=== PATIENT | female | born 1950 | race Caucasian/White ===

== ENCOUNTER → 2016-11-10 | Outpatient (REF) | payer BC ==
[2016-11-14 14:16] LABS: TOTAL ALK PHOS 175 IU/L (39-117)
== END ==
LOC: M LAB REF 16:36
PROVIDERS: ATTEND Internal Medicine
DX: R74.8 Abnormal levels of other serum enzymes (principal)

== ENCOUNTER → 2018-02-15 | Outpatient (REF) | payer BC, OTHER ==
[2018-02-15 19:11] LABS: FOLATE 5.4 NG/ML; VITAMIN B12 LEVEL 341 PG/ML
[2018-02-16 10:24] LABS: HEPATITIS C VIRUS ABY INDEX 0.1 INDEX (<0.8)
[2018-02-16 10:24] LABS: HIV 1&2 SCREEN CENTAUR NEGATIVE (NEGATIVE)
== END ==
LOC: M LAB REF 17:29
DX: Z01.89 Encounter for other specified special examinations (principal); Z98.84 Bariatric surgery status
CPT/HCPCS: 82746

== ENCOUNTER → 2018-10-26 | Outpatient (CLI) | payer OTHER ==
--- NOTE | 2018-10-26 14:15 | REP ---
Chest two views HISTORY: Cough Comparison: 06/10/2008 The lungs are clear. The heart is normal in size. The pulmonary vasculature is normal in appearance. The bony structure is intact. IMPRESSION: No acute disease. Electronically Signed by Castillo Hinds MD 10/26/2018 02:07 P
== END ==
LOC: M WUC 13:57
PROVIDERS: ATTEND Internal Medicine
DX: R05 Cough (principal); R53.83 Other fatigue

== ENCOUNTER → 2018-10-31 | Outpatient (REF) | payer OTHER ==
[2018-10-31 13:07] LABS: PERCENT SATURATION 7.1 % (13.2-45.0)
[2018-11-03 10:37] LABS: Alkaline Phosphatase Iso-Bone 57 % (14-68); Alkaline Phosphatase Iso-Intes 2 % (0-18); Alkaline Phosphatase Iso-Liver 41 % (18-85); TOTAL ALK PHOS 169 IU/L (39-117)
== END ==
LOC: M LAB REF 12:24
PROVIDERS: ATTEND Internal Medicine
DX: Z98.84 Bariatric surgery status (principal); D50.9 Iron deficiency anemia, unspecified

== ENCOUNTER → 2019-04-11 | Outpatient (REF) | payer OTHER ==
[2019-04-11 12:59] LABS: FOLATE 8.5 NG/ML
== END ==
LOC: M LAB REF 12:23
PROVIDERS: ATTEND Internal Medicine
DX: D64.9 Anemia, unspecified (principal); Z98.84 Bariatric surgery status

== ENCOUNTER 2019-08-06 10:53 | Emergency (ER) | payer MEDICARE ==
[~2019-08-06] VITALS: Ht 162.6 cm; Wt 93.1 kg
[2019-08-06] MEDS ORDERED: OMEP-218 (11:02)
[2019-08-06] MEDS ORDERED: BUPR300T92 (11:02)
[2019-08-06] MEDS ORDERED: GABA-845 (11:02)
[2019-08-06] MEDS ORDERED: NS 1,000 ML IV ONE (12:15)
[2019-08-06] MEDS ORDERED: ONDANSETRON 4MG/2ML VIAL (J2405) IV ONE (12:15)
[2019-08-06] MEDS ORDERED: KETOROLAC 30 MG/ML VIAL (J1885) IV ONE ×2 (12:15→14:45)
--- NOTE | 2019-08-06 14:09 | REP ---
CT of the abdomen and pelvis without IV and oral contrast for right flank pain: Comparison is 11/14/2006. The visualized lung f[place] are unremarkable. There are numerous surgical clips and staple lines in the upper abdomen as previously. The patient reportedly has had bariatric surgery. There is a focal dilated loop of small bowel in the mid upper abdomen, unchanged from the prior study with an anastomotic surgical suture ring at its periphery. The hepatic parenchyma is unremarkable. There is a cholecystectomy. The pancreas and spleen are unremarkable. The adrenals are unremarkable. There are no renal or ureteral calculi. There is no hydronephrosis. No perinephric stranding. The abdominal aorta is unremarkable. There is no periaortic adenopathy or mass. There is no bowel distension or obstruction. There is no ascites. No pneumoperitoneum. Pelvis: The patient reportedly has an appendectomy. The uterus, adnexa and bladder are unremarkable. There is no pelvic adenopathy or ascites. The pelvic bowel loops are unremarkable. Impression: There are no renal or ureteral calculi. There is no hydronephrosis. There is a cholecystectomy and appendectomy. The patient has had bariatric surgery. There are numerous surgical staple lines and clips in the upper abdomen. There is a chronically dilated loop of small bowel with a circumferential surgical suture ring. No evidence of bowel obstruction. No ascites, adenopathy or mass. Otherwise, negative CT of the abdomen and pelvis. Electronically Signed by Otilio Davis MD 08/06/2019 02:01 P
[2019-08-06 14:20] LABS: BASO # 0.1 10^3/uL (0.0-0.2); BASO % 1.2 % (0.0-1.0); EOS # 0.2 10^3/uL (0.0-0.5); EOS % 2.3 % (0.0-3.0); HEMATOCRIT 41.7 % (36.0-47.0); HEMOGLOBIN 12.8 g/dl (12.0-15.5); LYMPH # 1.9 10^3/uL (1.5-5.0); LYMPH % 29.8 % (24.0-44.0); MEAN CORPUSCULAR HEMOGLOBIN 30.7 pg (27.0-33.0); MEAN CORPUSCULAR HGB CONC 30.7 g/dl (32.0-36.5); MONO # 0.5 10^3/uL (0.0-0.8); MONO % 7.1 % (0.0-5.0); NEUTROPHILS # 3.8 10^3/uL (1.5-8.5); NEUTROPHILS % 59.3 % (36.0-66.0); PLATELET COUNT, AUTOMATED 229 10^3/uL (150-450); RED BLOOD COUNT 4.17 10^6/uL (4.00-5.40); WHITE BLOOD COUNT 6.4 10^3/uL (4.0-10.0)
[2019-08-06 14:45] LABS: BILIRUBIN,DIRECT 0.1 MG/DL (0.0-0.2); BILIRUBIN,TOTAL 0.3 MG/DL (0.2-1.0); TOTAL PROTEIN 5.5 GM/DL (6.4-8.2)
[2019-08-06] MEDS ORDERED: METH1TAB40 PO (15:39)
[2019-08-06 15:46] VITALS: BP 133/60
== END 2019-08-06 15:47 | disposition home or self-care (01) ==
LOC: M ED 10:53
DX: M54.5 Low back pain (principal); G56.91 Unspecified mononeuropathy of right upper limb; Z88.5 Allergy status to narcotic agent; Z91.048 Other nonmedicinal substance allergy status; Z79.899 Other long term (current) drug therapy; Z98.84 Bariatric surgery status
CPT/HCPCS: 36415; 74176; 80047; 80076; 81001; 85025; 87086; 96374; 96375; 99284; J1885; J2405

== ENCOUNTER → 2019-09-16 | Outpatient (CLI) | payer MEDICARE ==
[~2019-09-16] MED LIST: BUPR300T92; GABA-845; METH1TAB40 PO; OMEP-218
[2019-09-16 16:13] LABS: HEMATOCRIT 45.1 % (36.0-47.0); HEMOGLOBIN 14.4 g/dl (12.0-15.5); MEAN CORPUSCULAR HEMOGLOBIN 31.6 pg (27.0-33.0); MEAN CORPUSCULAR HGB CONC 31.9 g/dl (32.0-36.5); MEAN CORPUSCULAR VOLUME 99.1 fl (80.0-96.0); PLATELET COUNT, AUTOMATED 294 10^3/uL (150-450); RED BLOOD COUNT 4.55 10^6/uL (4.00-5.40); WHITE BLOOD COUNT 7.5 10^3/uL (4.0-10.0)
[2019-09-16 16:20] LABS: ALBUMIN 3.1 GM/DL (3.2-5.2); ALT/SGPT 24 U/L (12-78); BILIRUBIN,DIRECT 0.1 MG/DL (0.0-0.2); BILIRUBIN,TOTAL 0.3 MG/DL (0.2-1.0); BLOOD UREA NITROGEN 16 MG/DL (7-18); CALCIUM LEVEL 8.5 MG/DL (8.8-10.2); CARBON DIOXIDE LEVEL 27 MEQ/L (21-32); CHLORIDE LEVEL 110 MEQ/L (98-107); CREATININE FOR GFR 0.84 MG/DL (0.55-1.30); GLOMERULAR FILTRATION RATE > 60.0 (>45); GLUCOSE, FASTING 101 MG/DL (70-100); PHOSPHORUS LEVEL 4.7 MG/DL (2.5-4.9); POTASSIUM SERUM 4.6 MEQ/L (3.5-5.1); SODIUM LEVEL 144 MEQ/L (136-145); TOTAL PROTEIN 5.9 GM/DL (6.4-8.2)
== END ==
LOC: M WUC 13:46
PROVIDERS: ATTEND Podiatrist Foot & Ankle Surgery
DX: Z79.899 Other long term (current) drug therapy (principal)

== ENCOUNTER → 2020-04-09 | Outpatient (REF) | payer MEDICARE | LOC: M LAB REF 16:11 | PROVIDERS: ATTEND Internal Medicine | DX: D64.9 Anemia, unspecified (principal); Z98.84 Bariatric surgery status ==

== ENCOUNTER → 2021-11-02 | Outpatient (CLI) | payer MEDICARE ==
[~2021-11-02] MED LIST changes: +GABA-283; -GABA-845; +METH-1164 PO; -METH1TAB40 PO; +OMEP-173; -OMEP-218
== END ==
LOC: M PLAIMG 10:06
PROVIDERS: ATTEND Nurse Practitioner Family
DX: M54.2 Cervicalgia (principal)

== ENCOUNTER → 2021-12-27 | Outpatient (REF) | payer MEDICARE ==
[2021-12-27 17:53] LABS: FOLATE 7.9 NG/ML
== END ==
LOC: M LAB REF 16:17
PROVIDERS: ATTEND Internal Medicine
DX: D64.9 Anemia, unspecified (principal); Z98.84 Bariatric surgery status

== ENCOUNTER 2022-01-01 08:48 | Emergency (ER) | payer MEDICARE ==
[~2022-01-01] VITALS: Ht 162.6 cm; Wt 89.1 kg
[~2022-01-01 08:48] MED LIST changes: -BUPR300T92; +BUPR300T92 PO; -GABA-283; +GABA-283 PO
[2022-01-01] MEDS ORDERED: diphenhydrAMINE 50MG/ML VIAL (J1200) IV STA (09:22)
[2022-01-01] MEDS ORDERED: CLINDAMYCIN 900 MG in IV 1 EA IV ONE (09:25)
[2022-01-01] MEDS ORDERED: NS 1,000 ML IV SCH (09:25)
[2022-01-01] MEDS ORDERED: ONDANSETRON 4MG 2ML VIAL IV ONE (09:25)
[2022-01-01] MEDS: MORPHINE 2 MG/ML 1ML VIAL IV PRN ×2 (09:52→10:22)
[2022-01-01 09:58] LABS: BASO # 0.1 10^3/uL (0.0-0.2); BASO % 1.2 % (0.0-1.0); EOS # 0.1 10^3/uL (0.0-0.5); EOS % 1.6 % (0.0-3.0); HEMATOCRIT 41.1 % (36.0-47.0); HEMOGLOBIN 12.7 g/dl (12.0-15.5); LYMPH # 1.9 10^3/uL (1.5-5.0); MEAN CORPUSCULAR HEMOGLOBIN 27.3 pg (27.0-33.0); MEAN CORPUSCULAR HGB CONC 30.9 g/dl (32.0-36.5); MEAN CORPUSCULAR VOLUME 88.2 fl (80.0-96.0); MONO # 0.7 10^3/uL (0.0-0.8); MONO % 9.4 % (2.0-8.0); NEUTROPHILS # 4.6 10^3/uL (1.5-8.5); NEUTROPHILS % 61.5 % (36.0-66.0); PLATELET COUNT, AUTOMATED 328 10^3/uL (150-450); RED BLOOD COUNT 4.66 10^6/uL (4.00-5.40); WHITE BLOOD COUNT 7.4 10^3/uL (4.0-10.0)
[2022-01-01 10:27] LABS: RSV AMPLIFICATION NEGATIVE (NEGATIVE)
[2022-01-01 10:28] LABS: ALBUMIN 3.5 GM/DL (3.2-5.2); ALT/SGPT 21 U/L (12-78); BILIRUBIN,DIRECT < 0.1 MG/DL (0.0-0.2); BILIRUBIN,TOTAL 0.4 MG/DL (0.2-1.0); BLOOD UREA NITROGEN 11 MG/DL (7-18); CALCIUM LEVEL 8.8 MG/DL (8.8-10.2); CARBON DIOXIDE LEVEL 29 MEQ/L (21-32); CHLORIDE LEVEL 107 MEQ/L (98-107); CREATININE FOR GFR 0.68 MG/DL (0.55-1.30); GLOMERULAR FILTRATION RATE > 60.0 (>45); GLUCOSE, FASTING 85 MG/DL (70-100); POTASSIUM SERUM 4.9 MEQ/L (3.5-5.1); SODIUM LEVEL 140 MEQ/L (136-145); TOTAL PROTEIN 6.7 GM/DL (6.4-8.2)
[2022-01-01] MEDS ORDERED: KETOROLAC 30 MG/ML 1ML VIAL IV ONE (10:35)
[2022-01-01] MEDS ORDERED: PENI500T PO (10:39)
[2022-01-01] MEDS ORDERED: TIZA10TA PO (10:39)
[2022-01-01] MEDS ORDERED: ISOVUE-370 76% 100ML VIAL As Ordered ONE (10:42)
[2022-01-01] MEDS ORDERED: CLEO300C2 PO ×2 (11:37→12:09)
[2022-01-01 12:11] VITALS: BP 146/67
== END 2022-01-01 12:12 | disposition home or self-care (01) ==
LOC: M ED 08:48
DX: K04.7 Periapical abscess without sinus (principal); R22.0 Localized swelling, mass and lump, head; G56.90 Unspecified mononeuropathy of unspecified upper limb; Z88.0 Allergy status to penicillin; Z91.048 Other nonmedicinal substance allergy status; Z79.899 Other long term (current) drug therapy
CPT/HCPCS: 70487; 80048; 80076; 83605; 85025; 87040; 87631; 96365; 96375; 99283; J1200; J1885; J2270; J2405; Q9967

== ENCOUNTER → 2022-07-13 | Outpatient (REF) | payer MEDICARE ==
[~2022-07-13] MED LIST changes: +CLEO300C2 PO; +PENI500T PO; +TIZA10TA PO
[2022-07-13 20:00] LABS: VITAMIN B12 LEVEL > 2000 PG/ML (211-911)
[2022-07-14 14:42] LABS: TOTAL 25(OH) VITAMIN D 40.3 NG/ML (20.0-100.0)
[2022-07-15 16:47] LABS: FERRITIN 28.5 NG/ML (7.3-270.7)
== END ==
LOC: M LAB REF 16:21
PROVIDERS: ATTEND Internal Medicine
DX: D64.9 Anemia, unspecified (principal); Z98.84 Bariatric surgery status

== ENCOUNTER → 2023-08-16 | Outpatient (REF) | payer MEDICARE ==
[~2023-08-16] MED LIST changes: -GABA-283 PO; +GABA-284 PO
[2023-08-16 18:53] LABS: FERRITIN 5.6 NG/ML (7.3-270.7); FOLATE 15.3 NG/ML (>5.4)
[2023-08-16 18:56] LABS: VITAMIN B12 LEVEL > 2000 PG/ML (211-911)
== END ==
LOC: M LAB REF 17:39
PROVIDERS: ATTEND Internal Medicine
DX: D51.9 Vitamin B12 deficiency anemia, unspecified (principal); D50.9 Iron deficiency anemia, unspecified

== ENCOUNTER → 2024-01-18 | Outpatient (CLI) | payer MEDICARE ==
[~2024-01-18] MED LIST changes: +BUPR-597 PO; -BUPR300T92 PO; -OMEP-173; +OMEP-173 PO
== END ==
LOC: M WHC 07:20
PROVIDERS: ATTEND Internal Medicine
DX: Z12.31 Encounter for screening mammogram for malignant neoplasm of breast (principal)

== ENCOUNTER 2024-01-29 06:37 | Day surgery (SDC) | payer MEDICARE ==
[~2024-01-29] VITALS: Ht 162.6 cm; Wt 90.4 kg
[2024-01-29] MEDS ORDERED: propofoL 200 MG/20 ML VIAL As Ordered ONE (07:04)
[2024-01-29] MEDS: NS 1,000 ML IV ONE (07:08)
[2024-01-29 08:06] VITALS: TEMP 97.2
[2024-01-29 08:30] VITALS: BP 157/81; O2SAT 98
== END 2024-01-29 08:37 | disposition home or self-care (01) ==
LOC: M OPP 06:37
PROVIDERS: ATTEND Internal Medicine Gastroenterology
DX: Z12.11 Encounter for screening for malignant neoplasm of colon (principal); K64.0 First degree hemorrhoids; K57.30 Diverticulosis of large intestine without perforation or abscess without bleeding; K22.89 Other specified disease of esophagus; Z98.84 Bariatric surgery status; R12 Heartburn; Z79.891 Long term (current) use of opiate analgesic; Z79.899 Other long term (current) drug therapy; Z88.5 Allergy status to narcotic agent; Z91.048 Other nonmedicinal substance allergy status
CPT/HCPCS: 43239; 88305; G0105

== ENCOUNTER → 2024-02-14 | Outpatient (REF) | payer MEDICARE | LOC: M LAB REF 13:19 | PROVIDERS: ATTEND Internal Medicine | DX: D50.9 Iron deficiency anemia, unspecified (principal) ==

== ENCOUNTER → 2024-02-29 | Outpatient (CLI) | payer MEDICARE | LOC: M WHC 08:26 | PROVIDERS: ATTEND Internal Medicine | DX: N64.2 Atrophy of breast (principal) ==

== ENCOUNTER → 2024-05-23 | Outpatient (REF) | payer MEDICARE | LOC: M LAB REF 17:29 | PROVIDERS: ATTEND Internal Medicine | DX: D50.9 Iron deficiency anemia, unspecified (principal); Z98.84 Bariatric surgery status ==

== ENCOUNTER → 2025-01-23 | Outpatient (REF) | payer MEDICARE ==
[~2025-01-23] MED LIST changes: -BUPR-597 PO; +BUPR-766 PO
[2025-01-23 15:07] LABS: VITAMIN B12 LEVEL 1344.0 PG/ML (211-911)
== END ==
LOC: M LAB REF 14:18
PROVIDERS: ATTEND Internal Medicine
DX: D50.9 Iron deficiency anemia, unspecified (principal)

== ENCOUNTER 2025-04-04 13:14 | Emergency (ER) | payer MEDICARE ==
[~2025-04-04] VITALS: Ht 162.6 cm; Wt 82.6 kg
[2025-04-04] MEDS ORDERED: BUPR150T12 (13:24)
[2025-04-04] MEDS ORDERED: GABA-1171 PO (13:24)
[2025-04-04] MEDS: ONDANSETRON 4MG ORAL DISINTEGRATING TAB PO ONE (14:48)
[2025-04-04] MEDS: PERCOCET 5MG/325MG TAB PO ONE (14:48)
[2025-04-04] MEDS ORDERED: PERC5TAB12 PO (15:04)
[2025-04-04] MEDS ORDERED: MIRA3350 PO (15:04)
[2025-04-04 15:17] VITALS: BP 133/64; TEMP 98; O2SAT 100
== END 2025-04-04 15:26 | disposition home or self-care (01) ==
LOC: M ED 13:14
DX: S20.211A Contusion of right front wall of thorax, initial encounter (principal); Y92.481 Parking lot as the place of occurrence of the external cause; Y93.9 Activity, unspecified; Y99.9 Unspecified external cause status; W01.0XXA Fall on same level from slipping, tripping and stumbling without subsequent striking against object, initial encounter; Z88.5 Allergy status to narcotic agent; Z91.048 Other nonmedicinal substance allergy status; Z79.899 Other long term (current) drug therapy